=== PATIENT | male | born 1965 | race American Indian/Alaskan Native ===

== ENCOUNTER → 2018-01-11 09:36 | Outpatient (CLI) | payer OTHER, SELFPAY ==
--- NOTE | 2018-01-11 | DI.US.S_ITS ---
PROCEDURE: US SCROTUM INDICATIONS: EPIDIDYMITIS TECHNIQUE: Real-time scanning was performed of the scrotum and testicles, with image documentation. Color and pulse Doppler interrogation was performed of both testicles. COMPARISON: Testicular ultrasound 04/24/2016, 01/25/2014, 08/15/2013, 06/30/2006 FINDINGS: Right: Testicle is normal in size at 2.5 x 3.4 x 5.0 cm, and homogenous in echotexture. Minimal microlithiasis, fewer than 7. Epididymis is normal in overall size and morphology without hypervascularity. No hydrocele or varicoceles. Overlying scrotal skin is normal in thickness. Left: Testicle is normal in size at 2.5 x 2.7 x 4.8 cm, and homogeneous in echotexture. Minimal microlithiasis, fewer than 7. Epididymis is normal in overall size and morphology without hypervascularity. A 4 mm spermatocele is present. No hydrocele or varicoceles. Overlying scrotal skin is normal in thickness. Doppler: Color and pulse Doppler demonstrate normal and symmetric arterial flow in both testicles. IMPRESSION: 1. Minimal microlithiasis as before. No mass lesions identified. Continued ultrasound surveillance every 2 years is suggested. 2. No sonographic evidence of epididymitis. Dictated by: Deo Todd M.D. on 01/11/2018 at 10:13 Approved by: Deo Todd M.D. on 01/11/2018 at 10:18
== END ==
PROVIDERS: Visit Provider Physician Assistant
DX: N45.1 Epididymitis (principal)
CPT/HCPCS: 76870

== ENCOUNTER → 2018-11-12 10:20 | Outpatient (CLI) | payer OTHER, SELFPAY ==
--- NOTE | 2018-11-12 | DI.RAD.S_ITS ---
PROCEDURE: XR CERVICAL SPINE 2V OR 3V INDICATIONS: PERSISTANT NECK PAIN RIGHT SIDE TECHNIQUE: 3 view(s) of the cervical spine were acquired. COMPARISON: None. FINDINGS: Bones: No fractures or dislocations to the C7 level. The lateral masses of C1 appear intact on the odontoid view. No suspicious bony lesions. There is degenerative disc disease, moderate at C5-C6 and C6-C7, mild at C4-C5 and C7-T1. Soft tissues: No prevertebral soft tissue swelling. IMPRESSION: Degenerative disc disease in cervical spine. Dictated by: Calos Alvarez M.D. on 11/12/2018 at 11:29 Approved by: Calos Alvarez M.D. on 11/12/2018 at 11:30
== END ==
PROVIDERS: Visit Provider Family Medicine
DX: M50.322 Other cervical disc degeneration at C5-C6 level (principal)
CPT/HCPCS: 72040

== ENCOUNTER 2019-01-28 06:46 | Day surgery (SDC) | payer OTHER, SELFPAY ==
[2019-01-28 07:13] VITALS: BP 123/74; PULSE 76; RESP 15; TEMP 36.2; O2SAT 98
[2019-01-28 07:14] VITALS: BMI 21.8
[2019-01-28] MEDS: SODIUM CHLORIDE 0.9% 1,000 ML 200 ML IV (07:30)
--- NOTE | 2019-01-28 07:52 | PM.HP.1 ---
History of Present Illness Date Patient Seen: 01/28/19 Time Patient Seen: 07:50 Chief complaint: [id number] SCREENING COLONOSCOPY Narrative: Patient is a gentleman for screening colonoscopy. This is his 1st exam. No family history colon cancer. Patient History Medical History (Updated 01/28/19 @ 07:54 by Vishal Nieves MD) Detached retina, bilateral (Resolved) Surgical History (Updated 01/28/19 @ 07:53 by Vishal Nieves MD) Status post cholecystectomy (Resolved) Social History household members: children and none Family & Social History Social History: household members children,none Meds Home Medications Medication Instructions Recorded Confirmed Type No Known Home Medications 01/28/19 01/28/19 History Allergies Allergy/AdvReac Type Severity Reaction Status Date / Time bee venom protein (honey bee) Allergy Mild LOCALIZED Verified 01/28/19 07:08 [BEE VENOM PROTEIN (HONEY SWELLING BEE)] cat dander Allergy Verified 01/28/19 07:08 Review of Systems Review of Systems All systems reviewed & are unremarkable except as noted in HPI and below Exam Vital Signs (past 8 hours): - 01/28/19 07:13 Temperature 97.2 F L Pulse Rate 76 Respiratory Rate 15 Blood Pressure 123/74 Pulse Oximetry 98 Oxygen Delivery Method Room Air Narrative Exam Narrative: Operative no apparent distress. Eyes are nonicteric. Lungs are clear to auscultation no rales or rhonchi. Heart regular rate and rhythm without murmur gallop. Abdomen is scaphoid soft nontender without mass. Patient is alert and oriented x3. His Assessment & Plan Assessment & Plan narrative: The patient for a screening colonoscopy. I have discussed the procedure with them. Risks of bleeding, perforation which would necessitate major operation, failure to find remove all lesions, the potential tattoo were all discussed. All questions were answered. They wished to proceed.
--- NOTE | 2019-01-28 07:54 | PM.PREOP ---
Pre-operative Note Interval Note History & Physical reviewed/Exam performed by Physician: Yes Changes to H&P: No ASA Class (for procedural sedation): I
--- NOTE | 2019-01-28 07:55 | P.HP_ITS ---
History of Present Illness Date Patient Seen: 01/28/19 Time Patient Seen: 07:50 Chief complaint: [id number] SCREENING COLONOSCOPY Narrative: Patient is a gentleman for screening colonoscopy. This is his 1st exam. No family history colon cancer. Patient History Medical History (Updated 01/28/19 @ 07:54 by Vishal Nieves MD) Detached retina, bilateral (Resolved) Surgical History (Updated 01/28/19 @ 07:53 by Vishal Nieves MD) Status post cholecystectomy (Resolved) Social History household members: children and none Family & Social History Social History: household members children,none Meds Home Medications Medication Instructions Recorded Confirmed Type No Known Home Medications 01/28/19 01/28/19 History Allergies Allergy/AdvReac Type Severity Reaction Status Date / Time bee venom protein (honey bee) Allergy Mild LOCALIZED Verified 01/28/19 07:08 [BEE VENOM PROTEIN (HONEY SWELLING BEE)] cat dander Allergy Verified 01/28/19 07:08 Review of Systems Review of Systems All systems reviewed & are unremarkable except as noted in HPI and below Exam Vital Signs (past 8 hours): - 01/28/19 07:13 Temperature 97.2 F L Pulse Rate 76 Respiratory Rate 15 Blood Pressure 123/74 Pulse Oximetry 98 Oxygen Delivery Method Room Air Narrative Exam Narrative: Operative no apparent distress. Eyes are nonicteric. Lungs are clear to auscultation no rales or rhonchi. Heart regular rate and rhythm without murmur gallop. Abdomen is scaphoid soft nontender without mass. Patient is alert and oriented x3. His Assessment & Plan Assessment & Plan narrative: The patient for a screening colonoscopy. I have d iscussed the procedure with them. Risks of bleeding, perforation which would necessitate major operation, failure to find remove all lesions, the potential tattoo were all discussed. All questions were answered. They wished to proceed.
[2019-01-28] MEDS: MIDAZOLAM 5 MG/5 ML VIAL IV (08:27)
[2019-01-28] MEDS: fentaNYL 250 MCG/5 ML INJ IV (08:27)
--- NOTE | 2019-01-28 08:40 | P.OP.ENDO_ITS ---
Operative Date/Time/Diagnoses Date of procedure: 01/28/19 Time of procedure: 08:37 Post-op diagnosis: same (Diverticulosis rare sigmoid colon. Internal hemorrhoids.) Procedure & Clinicians Study performed: Colonoscopy Same procedure as scheduled: Yes Indications: Screening. This is his 1st colonoscopy Surgeon: Vishal Nieves Procedure Notes SCOAP/Timeout: Performed Procedure in detail: The patient was placed in the left lateral decubitus posi tion and underwent IV sedation directed by the surgeon consisting of fentanyl and Versed. Digital exam was unremarkable. The scope was inserted and advanced through the rectum into the sigmoid, descending, transverse, and ascending colon. I noted an occasional diverticulum in the sigmoid colon. Pressure was applied to make our way into the cecum. The cecum was reached identified by the ileocecal valve and the appendiceal opening. The ileocecal valve was successfully cannulated. The terminal ileum was normal in appearance. The scope was gradually brought out. No Polyps were found. The scope ultimately was retroflexed in the rectum. The appearance was remarkable for internal hemorrhoids. There were no ulcerations.. The scope was removed and the patient tolerated the procedure well. Prep was very good. Scope withdrawal time: Over 9 minutes Sedation minutes: 27 Findings: diverticulosis (Sigmoid. Few in number.) and internal hemorrhoids Specimen(s): none sent Complications: none Recommendations: Colonscopy in 10 years Follow up: as needed Disposition: PACU
[2019-01-28 08:41] VITALS: BP 107/67; PULSE 70; RESP 18; TEMP 36.3; O2SAT 100
[2019-01-28 08:45] VITALS: BP 108/75; PULSE 60; RESP 12; O2SAT 100
[2019-01-28 08:50] VITALS: BP 111/79; BP 127/82; PULSE 60; PULSE 62; RESP 10; RESP 15; TEMP 36.1; O2SAT 100; O2SAT 99
[2019-01-28 09:11] VITALS: BP 125/80; PULSE 61; RESP 15; TEMP 36; O2SAT 98
== END 2019-01-28 09:18 | disposition home or self-care (01) ==
PROVIDERS: Visit Provider Specialist
PROC: 0DJD8ZZ Inspection of Lower Intestinal Tract, Via Natural or Artificial Opening Endoscopic (ICD-10-PCS; CPT 45378; principal; 2019-01-28 07:45)
DX: Z12.11 Encounter for screening for malignant neoplasm of colon (principal); K57.30 Diverticulosis of large intestine without perforation or abscess without bleeding; K64.8 Other hemorrhoids
CPT/HCPCS: 45378; 99152; J2250; J3010

== ENCOUNTER → 2019-10-13 14:45 | Outpatient (CLI) | payer OTHER, SELFPAY ==
--- NOTE | 2019-10-13 | DI.US.S_ITS ---
PROCEDURE: US PERIPH VENOUS LOW EXTREM RT INDICATIONS: LOCALIZED EDEMA TECHNIQUE: Real-time imaging, as well as color and pulse Doppler interrogation, were performed of the lower extremity deep veins from the inguinal ligament to the popliteal fossa. COMPARISON: None. FINDINGS: The common femoral, femoral and popliteal veins are normally compressible, and free of intraluminal thrombus. Color and pulse Doppler demonstrate normal phasic intraluminal flow. There is normal augmentation response to distal compression maneuver. A Miller's cyst is noted. IMPRESSION: No evidence of right lower extremity deep vein thrombosis. Dictated by: Germain Garces M.D. on 10/13/2019 at 15:55 Approved by: Germain Garces M.D. on 10/13/2019 at 16:00
[2019-10-13 15:51] LABS: D Dimer 463 ng/mL (<230)
== END ==
PROVIDERS: PCP Family Medicine; Referring Provider Physician Assistant; Visit Provider Physician Assistant
DX: R60.0 Localized edema (principal)
CPT/HCPCS: 36415; 85379; 93971